=== PATIENT | male | born 1960 | race Caucasian/White ===

== ENCOUNTER 2024-04-25 08:56 | Day surgery (SDC) | payer MEDICAID ==
[~2024-04-25] VITALS: Ht 170.2 cm; Wt 97.5 kg
[2024-04-25] MEDS ORDERED: BENZOCAINE 20% 0.5mL UD SPRAY MM ONE (10:58)
[2024-04-25] MEDS ORDERED: fentaNYL CITRATE/PF 100 MCG/2 ML AMP ONE ×2 (10:59→11:07)
[2024-04-25] MEDS ORDERED: MIDAZOLAM HCL 5 MG/5 ML VIAL ONE ×2 (10:59→11:07)
[2024-04-25 13:23] VITALS: O2SAT 98
[2024-04-25 15:08] VITALS: BP_SYST 107; PULSE 86; RESP 20
== END 2024-04-25 12:30 | disposition home or self-care (01) ==
LOC: SDS 08:56 → SMU 08:59 → SDS 12:30
PROVIDERS: ATTEND Internal Medicine
DX: Z12.11 Encounter for screening for malignant neoplasm of colon (principal); D12.4 Benign neoplasm of descending colon; D12.0 Benign neoplasm of cecum; K29.50 Unspecified chronic gastritis without bleeding; K74.60 Unspecified cirrhosis of liver; I85.00 Esophageal varices without bleeding; K31.89 Other diseases of stomach and duodenum; K64.8 Other hemorrhoids; E11.9 Type 2 diabetes mellitus without complications; E78.5 Hyperlipidemia, unspecified; I25.2 Old myocardial infarction; Z98.890 Other specified postprocedural states; Z79.84 Long term (current) use of oral hypoglycemic drugs; Z79.899 Other long term (current) drug therapy
CPT/HCPCS: 45380; 45385; 43239; 99152; 82948; 88305; 88312; 88313; 99153; G0378; J2250; J3010